=== PATIENT | male | born 1995 | race Caucasian/White ===

== ENCOUNTER 2019-09-22 18:39 | Emergency (ER) | payer SELFPAY ==
[2019-09-22 19:39] VITALS: BP 164/59
--- NOTE | 2019-09-22 20:02 | UC ---
Skin Complaint HPI - HPI Summary HPI Summary: Per head setter: "Pt found a tick on his stomach last night which he pulled. Pt states the area he was bitten is not painful, red, or swollen. Pt states he has never been bitten by a tick that he knows of before." -doesnt know how long it's been there -brought tic in a bag intact - inspected and not engorged. -slightly red surrounding -no f/c. -no joint aches or swelling. no muscle aches - History of Current Complaint Chief Complaint: UCSkin Time Seen by Provider: 09/22/19 19:32 Stated Complaint: TICK Pain Intensity: 0 - Allergy/Home Medications Allergies/Adverse Reactions: Allergies Allergy/AdvReac Type Severity Reaction Status Date / Time No Known Allergies Allergy Verified 09/22/19 19:38 PMH/Surg Hx/FS Hx/Imm Hx Previously Healthy: Yes - Surgical History Surgical History: Yes Surgery Procedure, Year, and Place: R knee - Family History Known Family History: Positive: Non-Contributory - Social History Alcohol Use: Weekly Substance Use Type: Marijuana Substance Use Comment - Amount & Last Used: occasionally Smoking Status (MU): Light Every Day Tobacco Smoker Amount Used/How Often: 4-5 cigarettes/day Have You Smoked in the Last Year: Yes Review of Systems All Other Systems Reviewed And Are Negative: Yes Constitutional: Positive: Negative. Negative: Fever, Chills, Fatigue Skin: Positive: Other - small surrounding red area at site of bite Eyes: Positive: Negative ENT: Positive: Negative Respiratory: Positive: Negative Cardiovascular: Positive: Negative Gastrointestinal: Positive: Negative Genitourinary: Positive: Negative Motor: Positive: Negative Neurovascular: Positive: Negative Musculoskeletal: Positive: Negative Neurological: Positive: Negative Psychological: Positive: Negative Is Patient Immunocompromised?: No Physical Exam Triage Information Reviewed: Yes Appearance: Well-Appearing, No Pain Distress, Well-Nourished Vital Signs: Initial Vital Signs Temp 98.9 F 09/22/19 19:33 Pulse 100 09/22/19 19:33 Resp 16 09/22/19 19:33 BP 164/59 09/22/19 19:33 Pulse Ox 100 09/22/19 19:33 Vital Signs Reviewed: Yes Respiratory Exam: Normal Respiratory: Positive: Lungs clear Cardiovascular Exam: Normal Cardiovascular: Positive: RRR Abdominal Exam: Normal Musculoskeletal Exam: Normal Neurological Exam: Normal Psychological Exam: Normal Skin: Positive: Other - left upper abdomen w/ small bite wound w/ mild surrounding erythema. no dc/ not target lesion. no streaks. cool to touch. Course/Dx - Course Course Of Treatment: tic bite for unknwon duratution. it has been removed and brought with him for inspection. not engorged. -treat w/ doxy 200mgs x 1 dose. -recommended avoid sunlight to 24-48 hrs or keep covered/sunscreen - Differential Diagnoses - Skin Complaint Differential Diagnoses: Cellulitis, Other - tic bite - Diagnoses Provider Diagnosis: Tick bite Discharge ED - Sign-Out/Discharge Documenting (check all that apply): Patient Departure All imaging exams completed and their final reports reviewed: No Studies - Discharge Plan Condition: Stable Disposition: HOME Prescriptions: DOXYcycline CAP(*) [DOXYcycline 100MG CAP(*)] 200 mg PO DAILY 1 Days #2 cap Patient Education Materials: Tick Bite (ED) Referrals: Adán eWi MD [Primary Care Provider] - Additional Instructions: Take the doxycycline 2 tablets at once. The tic was not engorged and there is a low risk for lyme disease. -You should ahve your blood pressure followed up on as it is elevated today. - Billing Disposition and Condition Condition: STABLE Disposition: Home
== END 2019-09-22 20:14 | disposition home or self-care (01) ==
LOC: UCCORT 18:39
DX: S30.861A Insect bite (nonvenomous) of abdominal wall, initial encounter (principal); F17.210 Nicotine dependence, cigarettes, uncomplicated; W57.XXXA Bitten or stung by nonvenomous insect and other nonvenomous arthropods, initial encounter; Y92.9 Unspecified place or not applicable
CPT/HCPCS: 99202; G0463